=== PATIENT | female | born 1935 | race Asian ===

== ENCOUNTER 2020-10-13 11:01 | Inpatient (IN) | payer OTHER, BC, SELFPAY ==
[~2020-10-13] VITALS: Ht 157.5 cm; Wt 60.8 kg
[~2020-10-13 11:01] MED LIST: ACT35 PO; ASPI-1393 PO; ATOR10TA68 PO; CLOP75TA32 PO; COR25 PO; GLIP-204 PO; VALS1TAB40 PO; [UNRECOGNIZED DRUG - CODE] PO
[2020-10-13 11:18] VITALS: BP_SYST 147
[2020-10-13] MEDS ORDERED: LEVE500T9 PO (11:51)
[2020-10-13] MEDS ORDERED: GLIP5TAB26 PO (11:51)
[2020-10-13] MEDS ORDERED: MOM PO (11:51)
[2020-10-13] MEDS ORDERED: ALOG25TA PO (11:51)
[2020-10-13] MEDS ORDERED: ACET325C5 PO (11:51)
[2020-10-13] MEDS ORDERED: SSNOVOLOG SUBCUT (11:51)
[2020-10-13] MEDS ORDERED: XALEYE OP (11:51)
[2020-10-13] MEDS ORDERED: INSU100V9 SQ (11:51)
[2020-10-13] MEDS ORDERED: FLEETMO RC (11:51)
[2020-10-13] MEDS ORDERED: ASCO500T20 PO (11:51)
[2020-10-13] MEDS ORDERED: CRAN500T2 PO (11:51)
[2020-10-13] MEDS ORDERED: BISA10SU61 RC (11:51)
[2020-10-13] MEDS ORDERED: MULT-1117 PO (11:51)
[2020-10-13] MEDS ORDERED: MEGE400O4 PO (11:51)
[2020-10-13] MEDS ORDERED: IPRA4AER INH (11:51)
[2020-10-13 12:02] LABS: BASOPHILS # (AUTO) 0.1 K/uL (0.0-0.2); BASOPHILS % (AUTO) 0.5 % (0.0-2.0); HEMATOCRIT 38.2 % (36-48); HEMOGLOBIN 12.7 g/dL (12.0-16.0); LYMPHOCYTES # (AUTO) 0.5 K/uL (1.0-5.5); LYMPHOCYTES % (AUTO) 3.6 % (20.5-51.5); MEAN CORPUSCULAR HEMOGLOBIN 31 pg (27-31); MEAN CORPUSCULAR HGB CONC 33 % (32-36); MEAN CORPUSCULAR VOLUME 93 fL (79.0-98.0); MONOCYTES # (AUTO) 0.5 K/uL (0.0-1.0); MONOCYTES % (AUTO) 3.3 % (1.7-9.3); NEUTROPHILS % (AUTO) 92.6 % (40.0-70.0); PLATELET COUNT (AUTO) 446 K/uL (130-430); RED BLOOD CELL COUNT(AUTO) 4.12 MIL/uL (4.2-6.2); RED CELL DISTRIBUTION WIDTH 15.4 % (9.0-15.0); WHITE BLOOD COUNT (AUTO) 14.1 K/uL (4.8-10.8)
[2020-10-13 12:14] LABS: ANION GAP 18 (5-15); CALCIUM 9.4 mg/dL (8.4-11.0); CHLORIDE 102 mmol/L (98-107); CREATININE 2.77 mg/dL (0.55-1.30); GLUCOSE 157 mg/dL (70-99); POTASSIUM 5.7 mmol/L (3.5-5.1); SODIUM SERUM 134 mmol/L (136-145); UREA NITROGEN, BLOOD 52 mg/dL (8-21)
[2020-10-13] MEDS ORDERED: NACL 0.9% 1,000 ML IV ONE ×2 (12:15→13:45)
[2020-10-13 12:20] LABS: ALANINE AMINOTRANSFERASE 34 U/L (12-78); ALBUMIN 2.9 g/dL (3.4-4.8); ASPARTATE AMINOTRANSFERASE 21 U/L (10-37); LACTATE DEHYDROGENASE 199 U/L (81-234); TOTAL BILIRUBIN 0.7 mg/dL (0.0-1.0)
[2020-10-13 12:48] LABS: C-REACTIVE PROTEIN QUANT 18.4 mg/dL (0-0.5); PROTHROMBIN TIME 10.3 SECS (9.5-12.5)
[2020-10-13] MEDS: NACL 0.9% 1,000 ML IV SCH ×2 (13:00→21:50)
[2020-10-13] MEDS ORDERED: AZITHROMYCIN 500 MG/VIAL (ZITHROMAX) IV ONE (13:05)
[2020-10-13] MEDS ORDERED: SODIUM ZIRCONIUM CYCLOSILICATE 10 GM POWD.PACK PO ONE (13:45)
[2020-10-13] MEDS ORDERED: HEPARIN 25,000 UNITS/D5W 250ML 250 ML IV ONE (13:55)
[2020-10-13 13:56] LABS: BILIRUBIN,URINE NEGATIVE (NEGATIVE); BLOOD, URINE NEGATIVE (NEGATIVE); CLARITY/URINE CLEAR (CLEAR); COLOR,URINE YELLOW (YELLOW); GLUCOSE,URINE 1+ (NEGATIVE); KETONES,URINE NEGATIVE (NEGATIVE); LEUKOCYTE ESTERASE ,URINE NEGATIVE (NEGATIVE); NITRITE, URINE NEGATIVE (NEGATIVE); PH,URINE 5.5 (5.0-8.0); PROTEIN URINE NEGATIVE (NEGATIVE); UROBILINOGEN,URINE 0.2 (0.2-1.0)
[2020-10-13] MEDS ORDERED: AZITHROMYCIN 500 MG in NS 250 ML IV ONE (14:00)
[2020-10-13] MEDS: HEPARIN 25,000 UNITS/D5W 250ML 250 ML IV PRN (14:40)
[2020-10-13] MEDS ORDERED: HEPARIN SODIUM,PORCINE 3000 UNITS/0.6 ML BOLUS IVP PRN (14:45)
[2020-10-13] MEDS ORDERED: HEPARIN SODIUM,PORCINE 5,000 UNITS/ML VIAL IVP ONE (14:45)
[2020-10-13] MEDS ORDERED: HEPARIN SODIUM,PORCINE 2000 UNITS/0.4 ML BOLUS IVP PRN (14:45)
[2020-10-13] MEDS ORDERED: TRANEXAMIC ACID 1,000 MG/10 ML VIAL ONE (17:24)
[2020-10-13] MEDS: INSULIN REGULAR, HUMAN 100 UNITS/ML, 10 ML VIAL (humuLIN R) SUBCUT PRN (18:16)
[2020-10-13] MEDS ORDERED: MINERAL OIL 133 ML ENEMA RC PRN (18:30)
[2020-10-13] MEDS ORDERED: ACETAMINOPHEN 325 MG TABLET PO PRN (18:30)
[2020-10-13] MEDS ORDERED: IPRATROPIUM/ALBUTEROL SULFATE 120 PUFFS/4 GM INH INH PRN (18:30)
[2020-10-13] MEDS ORDERED: MILK OF MAGNESIA 30 ML UDC PO PRN (18:30)
[2020-10-13 19:00] VITALS: BP_SYST 82
[2020-10-13] MEDS: PIPERACILLIN/TAZO 2.25G/DEX-IS 50 ML IV SCH (19:00)
[2020-10-13 20:00] VITALS: BP_SYST 150
[2020-10-13 21:00] VITALS: BP_SYST 109
[2020-10-13] MEDS: INSULIN GLARGINE 100 UNITS/ML 10 ML VIAL SQ SCH (21:00)
[2020-10-13] MEDS: LATANOPROST 2.5 ML DROPS (XALATAN) OP SCH (21:00)
[2020-10-13] MEDS ORDERED: PIPERACILLIN/TAZOBACTAM 2.25 GM VIAL IV ONE (21:11)
[2020-10-13] MEDS: levETIRAcetam 500 MG TABLET PO SCH (21:36)
[2020-10-13] MEDS ORDERED: ACETAMINOPHEN 325 MG TABLET ONE (21:56)
[2020-10-13 22:00] VITALS: BP_SYST 177
[2020-10-13 23:00] VITALS: BP_SYST 135
[2020-10-13 23:11] LABS: INR 1.2 (0.8-1.2); PROTHROMBIN TIME 12.1 SECS (9.5-12.5)
[2020-10-14] VITALS (23 sets, daily range): BP systolic 100–161
[2020-10-14] MEDS: PIPERACILLIN/TAZO 2.25G/DEX-IS 50 ML IV SCH ×5 (01:14→23:15)
[2020-10-14] MEDS ORDERED: glipiZIDE XL 5 MG TAB ( GLUCOTROL XL) PO SCH (07:00)
[2020-10-14] MEDS ORDERED: IPRATROPIUM/ALBUTEROL SULFATE 3 ML AMPUL.NEB (DUONEB) INH PRN (07:15)
[2020-10-14 08:59] LABS: BASOPHILS % (AUTO) 0.2 % (0.0-2.0); HEMATOCRIT 30.8 % (36-48); HEMOGLOBIN 9.9 g/dL (12.0-16.0); LYMPHOCYTES # (AUTO) 0.3 K/uL (1.0-5.5); LYMPHOCYTES % (AUTO) 2.5 % (20.5-51.5); MEAN CORPUSCULAR HEMOGLOBIN 31 pg (27-31); MEAN CORPUSCULAR HGB CONC 32 % (32-36); MEAN CORPUSCULAR VOLUME 95 fL (79.0-98.0); MONOCYTES # (AUTO) 0.4 K/uL (0.0-1.0); MONOCYTES % (AUTO) 2.8 % (1.7-9.3); NEUTROPHILS % (AUTO) 94.5 % (40.0-70.0); PLATELET COUNT (AUTO) 308 K/uL (130-430); RED BLOOD CELL COUNT(AUTO) 3.23 MIL/uL (4.2-6.2); RED CELL DISTRIBUTION WIDTH 16.2 % (9.0-15.0); WHITE BLOOD COUNT (AUTO) 13.7 K/uL (4.8-10.8)
[2020-10-14] MEDS: CLOPIDOGREL BISULFATE 75 MG TABLET PO SCH (09:00)
[2020-10-14] MEDS: ASCORBIC ACID 500 MG TABLET PO SCH (09:00)
[2020-10-14] MEDS: BISACODYL 10 MG/SUPPOSITORY RC SCH (09:00)
[2020-10-14] MEDS: levETIRAcetam 500 MG TABLET PO SCH ×2 (09:00→21:00)
[2020-10-14] MEDS ORDERED: cefTRIAXone 1 GM IVPB PREMIX 50 ML IV SCH (09:00)
[2020-10-14] MEDS: MEGESTROL ACETATE 400 MG/10 ML UDC PO SCH (09:00)
[2020-10-14] MEDS: ASPIRIN 81 MG TABLET(ECOTRIN) PO SCH (09:00)
[2020-10-14] MEDS ORDERED: CRANBERRY EXTRACT 500 MG PO SCH (09:00)
[2020-10-14] MEDS: MULTIVITAMINS TAB 1 TABLET PO SCH (09:00)
[2020-10-14] MEDS: DEXAMETHASONE SOD PHOSPHATE 4 MG/ML VIAL IVP SCH (10:00)
[2020-10-14 10:04] LABS: ANION GAP 15 (5-15); CALCIUM 8.7 mg/dL (8.4-11.0); CHLORIDE 112 mmol/L (98-107); CREATININE 2.17 mg/dL (0.55-1.30); GLUCOSE 143 mg/dL (70-99); POTASSIUM 5.1 mmol/L (3.5-5.1); SODIUM SERUM 142 mmol/L (136-145); UREA NITROGEN, BLOOD 50 mg/dL (8-21)
[2020-10-14 10:18] LABS: ALANINE AMINOTRANSFERASE 28 U/L (12-78); ALBUMIN 2.2 g/dL (3.4-4.8); ASPARTATE AMINOTRANSFERASE 37 U/L (10-37); THYROID STIMULATING HORMONE 1.02 uIu/mL (0.36-3.74); TOTAL BILIRUBIN 0.6 mg/dL (0.0-1.0)
[2020-10-14 11:26] LABS: CHOLESTEROL 115 mg/dL (<200); HDL CHOLESTEROL 33 mg/dL (>55); LDL CHOLESTEROL 32 mg/dL (<100); TRIGLYCERIDES 94 mg/dL (30-150)
[2020-10-14] MEDS: INSULIN REGULAR, HUMAN 100 UNITS/ML, 10 ML VIAL (humuLIN R) SUBCUT PRN ×3 (12:59→23:17)
[2020-10-14] MEDS: NACL 0.9% 1,000 ML IV SCH (13:04)
[2020-10-14] MEDS ORDERED: SODIUM BICARBONATE 8.4% JECT 50 MEQ/50 ML SYRINGE IVP ONE ×2 (16:15→19:45)
[2020-10-14] MEDS ORDERED: SODIUM BICARBONATE 8.4% JECT 50 MEQ/50 ML SYRINGE ONE ×3 (16:16→18:47)
[2020-10-14] MEDS ORDERED: FUROSEMIDE 100 MG in D5W 90 ML IV SCH (17:00)
[2020-10-14] MEDS: LATANOPROST 2.5 ML DROPS (XALATAN) OP SCH (21:00)
[2020-10-14] MEDS ORDERED: PROPOFOL DRIP 100 ML IV ONE (22:51)
[2020-10-14] MEDS: INSULIN GLARGINE 100 UNITS/ML 10 ML VIAL SQ SCH (23:00)
[2020-10-14] MEDS: PROPOFOL DRIP 100 ML IV PRN (23:18)
[2020-10-15] VITALS (28 sets, daily range): BP systolic 95–148
[2020-10-15] MEDS: PIPERACILLIN/TAZO 2.25G/DEX-IS 50 ML IV SCH ×3 (05:08→17:11)
[2020-10-15 05:28] LABS: BASOPHILS % (AUTO) 0.4 % (0.0-2.0); EOSINOPHILS # (AUTO) 0.2 K/uL (0.0-0.4); EOSINOPHILS % (AUTO) 1.4 % (0.0-4.0); HEMATOCRIT 24.6 % (36-48); HEMOGLOBIN 8.3 g/dL (12.0-16.0); LYMPHOCYTES # (AUTO) 0.2 K/uL (1.0-5.5); LYMPHOCYTES % (AUTO) 1.7 % (20.5-51.5); MEAN CORPUSCULAR HEMOGLOBIN 32 pg (27-31); MEAN CORPUSCULAR HGB CONC 34 % (32-36); MEAN CORPUSCULAR VOLUME 94 fL (79.0-98.0); MONOCYTES # (AUTO) 0.4 K/uL (0.0-1.0); MONOCYTES % (AUTO) 3.5 % (1.7-9.3); NEUTROPHILS # (AUTO) 11.9 K/uL (1.8-7.7); PLATELET COUNT (AUTO) 267 K/uL (130-430); RED BLOOD CELL COUNT(AUTO) 2.62 MIL/uL (4.2-6.2); RED CELL DISTRIBUTION WIDTH 16.3 % (9.0-15.0); WHITE BLOOD COUNT (AUTO) 12.7 K/uL (4.8-10.8)
[2020-10-15 05:40] LABS: ANION GAP 11 (5-15); CALCIUM 7.8 mg/dL (8.4-11.0); CHLORIDE 115 mmol/L (98-107); CREATININE 2.36 mg/dL (0.55-1.30); GLUCOSE 174 mg/dL (70-99); PHOSPHORUS 3.5 mg/dL (2.7-4.5); SODIUM SERUM 149 mmol/L (136-145); UREA NITROGEN, BLOOD 56 mg/dL (8-21)
[2020-10-15] MEDS: INSULIN REGULAR, HUMAN 100 UNITS/ML, 10 ML VIAL (humuLIN R) SUBCUT PRN ×4 (05:57→20:55)
[2020-10-15] MEDS: HEPARIN 25,000 UNITS/D5W 250ML 250 ML IV PRN (06:02)
[2020-10-15] MEDS: ASPIRIN 81 MG TABLET(ECOTRIN) PO SCH (08:31)
[2020-10-15] MEDS: DEXAMETHASONE SOD PHOSPHATE 4 MG/ML VIAL IVP SCH (08:31)
[2020-10-15] MEDS: levETIRAcetam 500 MG TABLET PO SCH ×2 (08:32→20:56)
[2020-10-15] MEDS: BISACODYL 10 MG/SUPPOSITORY RC SCH (08:32)
[2020-10-15] MEDS: MEGESTROL ACETATE 400 MG/10 ML UDC PO SCH (08:32)
[2020-10-15] MEDS: ASCORBIC ACID 500 MG TABLET PO SCH (08:32)
[2020-10-15] MEDS: MULTIVITAMINS TAB 1 TABLET PO SCH (08:32)
[2020-10-15] MEDS: CLOPIDOGREL BISULFATE 75 MG TABLET PO SCH (08:32)
[2020-10-15] MEDS: NACL 0.9% 1,000 ML IV SCH ×2 (09:30→17:11)
[2020-10-15] MEDS ORDERED: ETOMIDATE 20 MG/ 10 ML VIAL (AMIDATE) IVP ONE (11:01)
[2020-10-15] MEDS ORDERED: SUCCINYLCHOLINE CHLORIDE 20 MG/ML(QUELICIN) IVP ONE (11:01)
[2020-10-15] MEDS: LATANOPROST 2.5 ML DROPS (XALATAN) OP SCH (20:57)
[2020-10-15] MEDS: MUPIROCIN 1 GM OIN.PF.APP NS SCH (20:57)
[2020-10-15] MEDS: LINEZOLID 300 ML IV SCH (20:58)
[2020-10-15] MEDS: INSULIN GLARGINE 100 UNITS/ML 10 ML VIAL SQ SCH (20:59)
[2020-10-16] VITALS (30 sets, daily range): BP systolic 98–153
[2020-10-16] MEDS: PIPERACILLIN/TAZO 2.25G/DEX-IS 50 ML IV SCH ×5 (01:47→23:58)
[2020-10-16] MEDS: NACL 0.9% 1,000 ML IV SCH ×3 (01:48→23:57)
[2020-10-16] MEDS: PROPOFOL DRIP 100 ML IV PRN ×2 (01:51→17:04)
[2020-10-16] MEDS: INSULIN REGULAR, HUMAN 100 UNITS/ML, 10 ML VIAL (humuLIN R) SUBCUT PRN ×4 (06:18→21:05)
[2020-10-16 06:19] LABS: BASOPHILS % (AUTO) 0.1 % (0.0-2.0); HEMATOCRIT 22.5 % (36-48); HEMOGLOBIN 7.5 g/dL (12.0-16.0); LYMPHOCYTES # (AUTO) 0.4 K/uL (1.0-5.5); LYMPHOCYTES % (AUTO) 3.8 % (20.5-51.5); MEAN CORPUSCULAR HEMOGLOBIN 31 pg (27-31); MEAN CORPUSCULAR HGB CONC 33 % (32-36); MEAN CORPUSCULAR VOLUME 92 fL (79.0-98.0); MONOCYTES # (AUTO) 0.6 K/uL (0.0-1.0); MONOCYTES % (AUTO) 4.8 % (1.7-9.3); NEUTROPHILS # (AUTO) 10.5 K/uL (1.8-7.7); NEUTROPHILS % (AUTO) 91.3 % (40.0-70.0); PLATELET COUNT (AUTO) 197 K/uL (130-430); RED BLOOD CELL COUNT(AUTO) 2.46 MIL/uL (4.2-6.2); RED CELL DISTRIBUTION WIDTH 15.8 % (9.0-15.0); WHITE BLOOD COUNT (AUTO) 11.6 K/uL (4.8-10.8)
[2020-10-16 06:37] LABS: ANION GAP 16 (5-15); CALCIUM 7.5 mg/dL (8.4-11.0); CHLORIDE 113 mmol/L (98-107); GLUCOSE 226 mg/dL (70-99); PHOSPHORUS 3.6 mg/dL (2.7-4.5); POTASSIUM 3.4 mmol/L (3.5-5.1); SODIUM SERUM 148 mmol/L (136-145); UREA NITROGEN, BLOOD 56 mg/dL (8-21)
[2020-10-16] MEDS ORDERED: POTASSIUM CHLORIDE 40 MEQ in NS 250 ML IV ONE (08:15)
[2020-10-16] MEDS: CLOPIDOGREL BISULFATE 75 MG TABLET PO SCH (08:37)
[2020-10-16] MEDS: ASCORBIC ACID 500 MG TABLET PO SCH (08:37)
[2020-10-16] MEDS: MEGESTROL ACETATE 400 MG/10 ML UDC PO SCH (08:37)
[2020-10-16] MEDS: levETIRAcetam 500 MG TABLET PO SCH ×2 (08:37→21:02)
[2020-10-16] MEDS: MULTIVITAMINS TAB 1 TABLET PO SCH (08:37)
[2020-10-16] MEDS: ASPIRIN 81 MG TABLET(ECOTRIN) PO SCH (08:37)
[2020-10-16] MEDS: LINEZOLID 300 ML IV SCH ×2 (08:37→21:01)
[2020-10-16] MEDS: MUPIROCIN 1 GM OIN.PF.APP NS SCH ×2 (08:41→21:02)
[2020-10-16] MEDS: BISACODYL 10 MG/SUPPOSITORY RC SCH (08:41)
[2020-10-16] MEDS: LATANOPROST 2.5 ML DROPS (XALATAN) OP SCH (21:02)
[2020-10-16] MEDS: INSULIN GLARGINE 100 UNITS/ML 10 ML VIAL SQ SCH (21:04)
[2020-10-16] MEDS ORDERED: HEPARIN SODIUM,PORCINE 5,000 UNITS/ML VIAL ONE (21:07)
[2020-10-16] MEDS: HEPARIN SODIUM,PORCINE 5,000 UNITS/ML VIAL SUBCUT SCH (21:08)
[2020-10-17] VITALS (28 sets, daily range): BP systolic 92–147
[2020-10-17] MEDS: PIPERACILLIN/TAZO 2.25G/DEX-IS 50 ML IV SCH (05:39)
[2020-10-17] MEDS: INSULIN REGULAR, HUMAN 100 UNITS/ML, 10 ML VIAL (humuLIN R) SUBCUT PRN ×3 (05:41→17:34)
[2020-10-17 06:35] LABS: HEMATOCRIT 23.7 % (36-48); HEMOGLOBIN 7.9 g/dL (12.0-16.0); MEAN CORPUSCULAR HEMOGLOBIN 31 pg (27-31); MEAN CORPUSCULAR HGB CONC 33 % (32-36); MEAN CORPUSCULAR VOLUME 93 fL (79.0-98.0); PLATELET COUNT (AUTO) 197 K/uL (130-430); RED BLOOD CELL COUNT(AUTO) 2.54 MIL/uL (4.2-6.2); RED CELL DISTRIBUTION WIDTH 16.2 % (9.0-15.0); WHITE BLOOD COUNT (AUTO) 11.7 K/uL (4.8-10.8)
[2020-10-17 06:48] LABS: ALANINE AMINOTRANSFERASE 28 U/L (12-78); ALBUMIN 1.5 g/dL (3.4-4.8); ANION GAP 14 (5-15); ASPARTATE AMINOTRANSFERASE 24 U/L (10-37); CALCIUM 7.6 mg/dL (8.4-11.0); CHLORIDE 114 mmol/L (98-107); CREATININE 2.08 mg/dL (0.55-1.30); GLUCOSE 222 mg/dL (70-99); PHOSPHORUS 2.3 mg/dL (2.7-4.5); POTASSIUM 3.5 mmol/L (3.5-5.1); SODIUM SERUM 148 mmol/L (136-145); TOTAL BILIRUBIN 0.4 mg/dL (0.0-1.0); UREA NITROGEN, BLOOD 50 mg/dL (8-21)
[2020-10-17] MEDS: BISACODYL 10 MG/SUPPOSITORY RC SCH (09:00)
[2020-10-17] MEDS: LINEZOLID 300 ML IV SCH ×2 (09:19→20:48)
[2020-10-17] MEDS: ASCORBIC ACID 500 MG TABLET PO SCH (09:20)
[2020-10-17] MEDS: levETIRAcetam 500 MG TABLET PO SCH ×2 (09:20→20:49)
[2020-10-17] MEDS: MUPIROCIN 1 GM OIN.PF.APP NS SCH ×2 (09:20→20:49)
[2020-10-17] MEDS: ASPIRIN 81 MG TABLET(ECOTRIN) PO SCH (09:20)
[2020-10-17] MEDS: MULTIVITAMINS TAB 1 TABLET PO SCH (09:20)
[2020-10-17] MEDS: MEGESTROL ACETATE 400 MG/10 ML UDC PO SCH (09:21)
[2020-10-17] MEDS: CLOPIDOGREL BISULFATE 75 MG TABLET PO SCH (09:21)
[2020-10-17] MEDS ORDERED: HEPARIN SODIUM,PORCINE 5,000 UNITS/ML VIAL ONE ×2 (10:26→20:56)
[2020-10-17] MEDS: HEPARIN SODIUM,PORCINE 5,000 UNITS/ML VIAL SUBCUT SCH ×2 (10:30→20:56)
[2020-10-17] MEDS: NACL 0.9% 1,000 ML IV SCH (13:00)
[2020-10-17] MEDS: CEFEPIME 1 GM in D5W 50 ML IV SCH (13:36)
[2020-10-17 13:46] LABS: BAND % (MANUAL) 15 % (0-6); BASOPHILS % (MANUAL) 0 % (0-2); EOSINOPHILS % (MANUAL) 0 % (0-7); LYMPHOCYTES % (MANUAL) 8 % (20-46); METAMYELOCYTES % 1 % (0-0); MONOCYTES % (MANUAL) 5 % (0-11)
[2020-10-17 13:47] LABS: WBC MORPHOLOGY TOXIC GRANULATION
[2020-10-17] MEDS: FLUCONAZOLE 100 mg/ NS 50 ML IV SCH (14:15)
[2020-10-17] MEDS: LATANOPROST 2.5 ML DROPS (XALATAN) OP SCH (20:49)
[2020-10-17] MEDS: INSULIN GLARGINE 100 UNITS/ML 10 ML VIAL SQ SCH (20:50)
[2020-10-17] MEDS: PROPOFOL DRIP 100 ML IV PRN (20:59)
[2020-10-18] VITALS (26 sets, daily range): BP systolic 91–156
[2020-10-18] MEDS: NACL 0.9% 1,000 ML IV SCH ×2 (02:23→15:47)
[2020-10-18 06:46] LABS: BASOPHILS % (AUTO) 0.2 % (0.0-2.0); EOSINOPHILS # (AUTO) 0.5 K/uL (0.0-0.4); EOSINOPHILS % (AUTO) 2.6 % (0.0-4.0); HEMATOCRIT 23.1 % (36-48); HEMOGLOBIN 7.7 g/dL (12.0-16.0); LYMPHOCYTES # (AUTO) 0.6 K/uL (1.0-5.5); LYMPHOCYTES % (AUTO) 3.4 % (20.5-51.5); MEAN CORPUSCULAR HEMOGLOBIN 31 pg (27-31); MEAN CORPUSCULAR HGB CONC 33 % (32-36); MEAN CORPUSCULAR VOLUME 93 fL (79.0-98.0); MONOCYTES # (AUTO) 0.5 K/uL (0.0-1.0); MONOCYTES % (AUTO) 2.7 % (1.7-9.3); NEUTROPHILS # (AUTO) 16.9 K/uL (1.8-7.7); NEUTROPHILS % (AUTO) 91.1 % (40.0-70.0); PLATELET COUNT (AUTO) 180 K/uL (130-430); RED BLOOD CELL COUNT(AUTO) 2.49 MIL/uL (4.2-6.2); RED CELL DISTRIBUTION WIDTH 16.1 % (9.0-15.0); WHITE BLOOD COUNT (AUTO) 18.5 K/uL (4.8-10.8)
[2020-10-18 07:28] LABS: ALANINE AMINOTRANSFERASE 15 U/L (12-78); ALBUMIN 1.3 g/dL (3.4-4.8); ANION GAP 14 (5-15); ASPARTATE AMINOTRANSFERASE 24 U/L (10-37); CALCIUM 7.8 mg/dL (8.4-11.0); CHLORIDE 116 mmol/L (98-107); GLUCOSE 114 mg/dL (70-99); PHOSPHORUS 2.5 mg/dL (2.7-4.5); POTASSIUM 3.3 mmol/L (3.5-5.1); SODIUM SERUM 147 mmol/L (136-145); TOTAL BILIRUBIN 0.3 mg/dL (0.0-1.0); UREA NITROGEN, BLOOD 40 mg/dL (8-21)
[2020-10-18] MEDS: MEGESTROL ACETATE 400 MG/10 ML UDC PO SCH (09:00)
[2020-10-18] MEDS: MULTIVITAMINS TAB 1 TABLET PO SCH (09:00)
[2020-10-18] MEDS: MUPIROCIN 1 GM OIN.PF.APP NS SCH ×2 (09:00→21:10)
[2020-10-18] MEDS: LINEZOLID 300 ML IV SCH ×2 (09:00→21:08)
[2020-10-18] MEDS: ASCORBIC ACID 500 MG TABLET PO SCH (09:00)
[2020-10-18] MEDS: HEPARIN SODIUM,PORCINE 5,000 UNITS/ML VIAL SUBCUT SCH ×2 (09:00→21:13)
[2020-10-18] MEDS: BISACODYL 10 MG/SUPPOSITORY RC SCH (09:00)
[2020-10-18] MEDS: ASPIRIN 81 MG TABLET(ECOTRIN) PO SCH (09:00)
[2020-10-18] MEDS: levETIRAcetam 500 MG TABLET PO SCH ×2 (09:00→21:10)
[2020-10-18] MEDS: CLOPIDOGREL BISULFATE 75 MG TABLET PO SCH (09:00)
[2020-10-18] MEDS: CEFEPIME 1 GM in D5W 50 ML IV SCH (13:15)
[2020-10-18] MEDS: FLUCONAZOLE 100 mg/ NS 50 ML IV SCH (14:00)
[2020-10-18 17:49] LABS: ANION GAP 12 (5-15); CALCIUM 7.4 mg/dL (8.4-11.0); CHLORIDE 115 mmol/L (98-107); CREATININE 1.69 mg/dL (0.55-1.30); GLUCOSE 73 mg/dL (70-99); SODIUM SERUM 146 mmol/L (136-145); UREA NITROGEN, BLOOD 37 mg/dL (8-21)
[2020-10-18 18:03] LABS: POTASSIUM 2.8 mmol/L (3.5-5.1)
[2020-10-18] MEDS ORDERED: KCL 40 mEq in 100 mL (PREMIX) 100 ML IV ONE (20:00)
[2020-10-18] MEDS ORDERED: HEPARIN SODIUM,PORCINE 5,000 UNITS/ML VIAL ONE (20:53)
[2020-10-18] MEDS: INSULIN GLARGINE 100 UNITS/ML 10 ML VIAL SQ SCH (21:00)
[2020-10-18] MEDS: LATANOPROST 2.5 ML DROPS (XALATAN) OP SCH (21:10)
[2020-10-19] VITALS (30 sets, daily range): BP systolic 93–156
[2020-10-19] MEDS: NACL 0.9% 1,000 ML IV SCH ×3 (06:12→23:49)
[2020-10-19] MEDS ORDERED: ACETAMINOPHEN 325 MG TABLET ONE (06:15)
[2020-10-19 06:37] LABS: BASOPHILS % (AUTO) 0.2 % (0.0-2.0); EOSINOPHILS # (AUTO) 0.1 K/uL (0.0-0.4); EOSINOPHILS % (AUTO) 0.3 % (0.0-4.0); LYMPHOCYTES # (AUTO) 0.5 K/uL (1.0-5.5); LYMPHOCYTES % (AUTO) 2.5 % (20.5-51.5); MEAN CORPUSCULAR HEMOGLOBIN 31 pg (27-31); MEAN CORPUSCULAR HGB CONC 33 % (32-36); MEAN CORPUSCULAR VOLUME 93 fL (79.0-98.0); MONOCYTES # (AUTO) 0.5 K/uL (0.0-1.0); MONOCYTES % (AUTO) 2.1 % (1.7-9.3); NEUTROPHILS # (AUTO) 20.5 K/uL (1.8-7.7); NEUTROPHILS % (AUTO) 94.9 % (40.0-70.0); PLATELET COUNT (AUTO) 151 K/uL (130-430); RED BLOOD CELL COUNT(AUTO) 2.23 MIL/uL (4.2-6.2); WHITE BLOOD COUNT (AUTO) 21.6 K/uL (4.8-10.8)
[2020-10-19 07:16] LABS: ANION GAP 11 (5-15); CALCIUM 7.7 mg/dL (8.4-11.0); CHLORIDE 114 mmol/L (98-107); CREATININE 1.75 mg/dL (0.55-1.30); GLUCOSE 266 mg/dL (70-99); POTASSIUM 3.7 mmol/L (3.5-5.1); SODIUM SERUM 144 mmol/L (136-145); UREA NITROGEN, BLOOD 40 mg/dL (8-21)
[2020-10-19 07:20] LABS: PHOSPHORUS 2.2 mg/dL (2.7-4.5)
[2020-10-19 08:36] LABS: HEMATOCRIT 20.8 % (36-48); HEMOGLOBIN 6.8 g/dL (12.0-16.0)
[2020-10-19] MEDS: MUPIROCIN 1 GM OIN.PF.APP NS SCH ×2 (09:00→21:00)
[2020-10-19] MEDS: levETIRAcetam 500 MG TABLET PO SCH ×2 (09:00→21:00)
[2020-10-19] MEDS: ASCORBIC ACID 500 MG TABLET PO SCH (09:00)
[2020-10-19] MEDS: MEGESTROL ACETATE 400 MG/10 ML UDC PO SCH (09:00)
[2020-10-19] MEDS: BISACODYL 10 MG/SUPPOSITORY RC SCH (09:00)
[2020-10-19] MEDS: LINEZOLID 300 ML IV SCH ×2 (09:00→21:00)
[2020-10-19] MEDS: ASPIRIN 81 MG TABLET(ECOTRIN) PO SCH (09:00)
[2020-10-19] MEDS: HEPARIN SODIUM,PORCINE 5,000 UNITS/ML VIAL SUBCUT SCH (09:00)
[2020-10-19] MEDS: CLOPIDOGREL BISULFATE 75 MG TABLET PO SCH (09:00)
[2020-10-19] MEDS: MULTIVITAMINS TAB 1 TABLET PO SCH (09:00)
[2020-10-19 09:53] LABS: BASOPHILS % (AUTO) 0.2 % (0.0-2.0); EOSINOPHILS # (AUTO) 0.1 K/uL (0.0-0.4); EOSINOPHILS % (AUTO) 0.3 % (0.0-4.0); LYMPHOCYTES # (AUTO) 0.5 K/uL (1.0-5.5); LYMPHOCYTES % (AUTO) 2.7 % (20.5-51.5); MEAN CORPUSCULAR HEMOGLOBIN 31 pg (27-31); MEAN CORPUSCULAR HGB CONC 33 % (32-36); MEAN CORPUSCULAR VOLUME 94 fL (79.0-98.0); MONOCYTES # (AUTO) 0.6 K/uL (0.0-1.0); MONOCYTES % (AUTO) 2.9 % (1.7-9.3); NEUTROPHILS # (AUTO) 17.8 K/uL (1.8-7.7); NEUTROPHILS % (AUTO) 93.9 % (40.0-70.0); PLATELET COUNT (AUTO) 141 K/uL (130-430); RED BLOOD CELL COUNT(AUTO) 2.17 MIL/uL (4.2-6.2); RED CELL DISTRIBUTION WIDTH 16.4 % (9.0-15.0); WHITE BLOOD COUNT (AUTO) 18.9 K/uL (4.8-10.8)
[2020-10-19 10:11] LABS: HEMATOCRIT 20.4 % (36-48); HEMOGLOBIN 6.7 g/dL (12.0-16.0)
[2020-10-19 10:29] LABS: ANION GAP 13 (5-15); CALCIUM 7.8 mg/dL (8.4-11.0); CHLORIDE 114 mmol/L (98-107); CREATININE 1.73 mg/dL (0.55-1.30); GLUCOSE 263 mg/dL (70-99); POTASSIUM 3.5 mmol/L (3.5-5.1); SODIUM SERUM 144 mmol/L (136-145); UREA NITROGEN, BLOOD 39 mg/dL (8-21)
[2020-10-19] MEDS: INSULIN REGULAR, HUMAN 100 UNITS/ML, 10 ML VIAL (humuLIN R) SUBCUT PRN ×2 (12:00→23:48)
[2020-10-19] MEDS ORDERED: HEPARIN SODIUM,PORCINE 5,000 UNITS/ML VIAL ONE (12:05)
[2020-10-19] MEDS: CEFEPIME 1 GM in D5W 50 ML IV SCH (14:10)
[2020-10-19] MEDS: FLUCONAZOLE 100 mg/ NS 50 ML IV SCH (14:11)
[2020-10-19] MEDS ORDERED: PANTOPRAZOLE SODIUM 40 MG/VIAL (PROTONIX) IVP ONE (14:45)
[2020-10-19] MEDS: INSULIN GLARGINE 100 UNITS/ML 10 ML VIAL SQ SCH (21:00)
[2020-10-19] MEDS ORDERED: PANTOPRAZOLE SODIUM 40 MG/VIAL (PROTONIX) IVP SCH (21:00)
[2020-10-19] MEDS: LATANOPROST 2.5 ML DROPS (XALATAN) OP SCH (21:00)
[2020-10-20] VITALS (30 sets, daily range): BP systolic 93–151
[2020-10-20] MEDS: PROPOFOL DRIP 100 ML IV PRN (04:46)
[2020-10-20] MEDS: INSULIN REGULAR, HUMAN 100 UNITS/ML, 10 ML VIAL (humuLIN R) SUBCUT PRN ×4 (06:35→22:46)
[2020-10-20] MEDS: BISACODYL 10 MG/SUPPOSITORY RC SCH (09:00)
[2020-10-20] MEDS: MUPIROCIN 1 GM OIN.PF.APP NS SCH (09:35)
[2020-10-20] MEDS: ASPIRIN 81 MG TABLET(ECOTRIN) PO SCH (09:35)
[2020-10-20] MEDS: PANTOPRAZOLE SODIUM 40 MG/VIAL (PROTONIX) IVP SCH (09:35)
[2020-10-20] MEDS: levETIRAcetam 500 MG TABLET PO SCH ×2 (09:35→20:13)
[2020-10-20] MEDS: LINEZOLID 300 ML IV SCH ×2 (09:35→20:12)
[2020-10-20] MEDS: ASCORBIC ACID 500 MG TABLET PO SCH (09:36)
[2020-10-20] MEDS: MEGESTROL ACETATE 400 MG/10 ML UDC PO SCH (09:36)
[2020-10-20] MEDS: CLOPIDOGREL BISULFATE 75 MG TABLET PO SCH (09:36)
[2020-10-20] MEDS: MULTIVITAMINS TAB 1 TABLET PO SCH (09:36)
[2020-10-20] MEDS: CEFEPIME 1 GM in D5W 50 ML IV SCH (13:00)
[2020-10-20] MEDS: FLUCONAZOLE 100 mg/ NS 50 ML IV SCH (14:00)
[2020-10-20] MEDS: NACL 0.9% 1,000 ML IV SCH (20:12)
[2020-10-20] MEDS: LATANOPROST 2.5 ML DROPS (XALATAN) OP SCH (20:13)
[2020-10-20] MEDS: INSULIN GLARGINE 100 UNITS/ML 10 ML VIAL SQ SCH (21:00)
[2020-10-21] VITALS (28 sets, daily range): BP systolic 96–172
[2020-10-21] MEDS: INSULIN REGULAR, HUMAN 100 UNITS/ML, 10 ML VIAL (humuLIN R) SUBCUT PRN ×3 (06:43→17:47)
[2020-10-21 06:55] LABS: BASOPHILS # (AUTO) 0.1 K/uL (0.0-0.2); BASOPHILS % (AUTO) 0.4 % (0.0-2.0); EOSINOPHILS # (AUTO) 0.4 K/uL (0.0-0.4); HEMATOCRIT 32.7 % (36-48); HEMOGLOBIN 10.6 g/dL (12.0-16.0); LYMPHOCYTES # (AUTO) 0.7 K/uL (1.0-5.5); LYMPHOCYTES % (AUTO) 3.7 % (20.5-51.5); MEAN CORPUSCULAR HEMOGLOBIN 30 pg (27-31); MEAN CORPUSCULAR HGB CONC 33 % (32-36); MEAN CORPUSCULAR VOLUME 91 fL (79.0-98.0); MONOCYTES # (AUTO) 0.5 K/uL (0.0-1.0); MONOCYTES % (AUTO) 2.7 % (1.7-9.3); NEUTROPHILS # (AUTO) 17.2 K/uL (1.8-7.7); NEUTROPHILS % (AUTO) 91.2 % (40.0-70.0); PLATELET COUNT (AUTO) 119 K/uL (130-430); RED BLOOD CELL COUNT(AUTO) 3.61 MIL/uL (4.2-6.2); RED CELL DISTRIBUTION WIDTH 16.3 % (9.0-15.0); WHITE BLOOD COUNT (AUTO) 18.8 K/uL (4.8-10.8)
[2020-10-21 07:21] LABS: ALANINE AMINOTRANSFERASE 9 U/L (12-78); ALBUMIN 0.9 g/dL (3.4-4.8); ANION GAP 11 (5-15); ASPARTATE AMINOTRANSFERASE 20 U/L (10-37); CALCIUM 7.8 mg/dL (8.4-11.0); CHLORIDE 113 mmol/L (98-107); CREATININE 1.55 mg/dL (0.55-1.30); GLUCOSE 193 mg/dL (70-99); POTASSIUM 3.3 mmol/L (3.5-5.1); SODIUM SERUM 142 mmol/L (136-145); TOTAL BILIRUBIN 0.5 mg/dL (0.0-1.0); UREA NITROGEN, BLOOD 36 mg/dL (8-21)
[2020-10-21] MEDS: BISACODYL 10 MG/SUPPOSITORY RC SCH (09:00)
[2020-10-21] MEDS ORDERED: HEPARIN SODIUM,PORCINE 5,000 UNITS/ML VIAL SUBCUT SCH (09:15)
[2020-10-21] MEDS: CLOPIDOGREL BISULFATE 75 MG TABLET PO SCH (09:46)
[2020-10-21] MEDS: ASCORBIC ACID 500 MG TABLET PO SCH (09:46)
[2020-10-21] MEDS: MULTIVITAMINS TAB 1 TABLET PO SCH (09:47)
[2020-10-21] MEDS: MEGESTROL ACETATE 400 MG/10 ML UDC PO SCH (09:47)
[2020-10-21] MEDS: levETIRAcetam 500 MG TABLET PO SCH ×2 (09:47→21:37)
[2020-10-21] MEDS: PANTOPRAZOLE SODIUM 40 MG/VIAL (PROTONIX) IVP SCH (09:49)
[2020-10-21] MEDS: ASPIRIN 81 MG TABLET(ECOTRIN) PO SCH (09:49)
[2020-10-21] MEDS: LINEZOLID 300 ML IV SCH (09:53)
[2020-10-21] MEDS: NACL 0.9% 1,000 ML IV SCH ×2 (10:20→21:38)
[2020-10-21] MEDS ORDERED: HEPARIN SODIUM,PORCINE 5,000 UNITS/ML VIAL SUBCUT ONE (11:15)
[2020-10-21] MEDS: FLUCONAZOLE 100 mg/ NS 50 ML IV SCH (13:13)
[2020-10-21] MEDS: CEFEPIME 1 GM in D5W 50 ML IV SCH (13:13)
[2020-10-21] MEDS: VANCOMYCIN HCL 1,000 MG in NS 250 ML IV SCH (17:46)
[2020-10-21] MEDS: INSULIN GLARGINE 100 UNITS/ML 10 ML VIAL SQ SCH (21:00)
[2020-10-21] MEDS: HEPARIN SODIUM,PORCINE 5,000 UNITS/ML VIAL SUBCUT SCH (21:37)
[2020-10-21] MEDS: LATANOPROST 2.5 ML DROPS (XALATAN) OP SCH (21:37)
[2020-10-22] VITALS (29 sets, daily range): BP systolic 86–146
[2020-10-22] MEDS: ASCORBIC ACID 500 MG TABLET PO SCH (08:49)
[2020-10-22] MEDS: MEGESTROL ACETATE 400 MG/10 ML UDC PO SCH (08:50)
[2020-10-22] MEDS: ASPIRIN 81 MG TABLET(ECOTRIN) PO SCH (08:50)
[2020-10-22] MEDS: MULTIVITAMINS TAB 1 TABLET PO SCH (08:51)
[2020-10-22] MEDS: PANTOPRAZOLE SODIUM 40 MG/VIAL (PROTONIX) IVP SCH (08:53)
[2020-10-22] MEDS: levETIRAcetam 500 MG TABLET PO SCH ×2 (08:54→21:20)
[2020-10-22] MEDS: CLOPIDOGREL BISULFATE 75 MG TABLET PO SCH (08:55)
[2020-10-22] MEDS: BISACODYL 10 MG/SUPPOSITORY RC SCH (08:58)
[2020-10-22] MEDS: HEPARIN SODIUM,PORCINE 5,000 UNITS/ML VIAL SUBCUT SCH ×2 (10:57→21:27)
[2020-10-22] MEDS: CEFEPIME 1 GM in D5W 50 ML IV SCH (12:43)
[2020-10-22] MEDS: INSULIN REGULAR, HUMAN 100 UNITS/ML, 10 ML VIAL (humuLIN R) SUBCUT PRN ×3 (12:53→21:28)
[2020-10-22] MEDS: NACL 0.9% 1,000 ML IV SCH (13:44)
[2020-10-22] MEDS: FLUCONAZOLE 100 mg/ NS 50 ML IV SCH (14:00)
[2020-10-22] MEDS: LATANOPROST 2.5 ML DROPS (XALATAN) OP SCH (21:20)
[2020-10-22] MEDS: INSULIN GLARGINE 100 UNITS/ML 10 ML VIAL SQ SCH (21:28)
[2020-10-23] VITALS (30 sets, daily range): BP systolic 11–117
[2020-10-23 04:55] LABS: BASOPHILS # (AUTO) 0.1 K/uL (0.0-0.2); BASOPHILS % (AUTO) 0.5 % (0.0-2.0); EOSINOPHILS # (AUTO) 0.1 K/uL (0.0-0.4); EOSINOPHILS % (AUTO) 0.9 % (0.0-4.0); HEMATOCRIT 31.9 % (36-48); HEMOGLOBIN 10.5 g/dL (12.0-16.0); LYMPHOCYTES # (AUTO) 0.3 K/uL (1.0-5.5); LYMPHOCYTES % (AUTO) 3.1 % (20.5-51.5); MEAN CORPUSCULAR HEMOGLOBIN 30 pg (27-31); MEAN CORPUSCULAR HGB CONC 33 % (32-36); MEAN CORPUSCULAR VOLUME 90 fL (79.0-98.0); MONOCYTES # (AUTO) 0.4 K/uL (0.0-1.0); MONOCYTES % (AUTO) 3.8 % (1.7-9.3); NEUTROPHILS # (AUTO) 9.3 K/uL (1.8-7.7); NEUTROPHILS % (AUTO) 91.7 % (40.0-70.0); PLATELET COUNT (AUTO) 79 K/uL (130-430); RED BLOOD CELL COUNT(AUTO) 3.53 MIL/uL (4.2-6.2); RED CELL DISTRIBUTION WIDTH 16.4 % (9.0-15.0); WHITE BLOOD COUNT (AUTO) 10.2 K/uL (4.8-10.8)
[2020-10-23 04:56] LABS: ANION GAP 10 (5-15); CHLORIDE 114 mmol/L (98-107); CREATININE 1.62 mg/dL (0.55-1.30); GLUCOSE 303 mg/dL (70-99); POTASSIUM 3.4 mmol/L (3.5-5.1); SODIUM SERUM 140 mmol/L (136-145); UREA NITROGEN, BLOOD 45 mg/dL (8-21)
[2020-10-23] MEDS: NACL 0.9% 1,000 ML IV SCH ×2 (06:03→16:46)
[2020-10-23] MEDS: INSULIN REGULAR, HUMAN 100 UNITS/ML, 10 ML VIAL (humuLIN R) SUBCUT PRN ×4 (06:03→21:43)
[2020-10-23] MEDS: PROPOFOL DRIP 100 ML IV PRN (06:06)
[2020-10-23] MEDS: BISACODYL 10 MG/SUPPOSITORY RC SCH (09:00)
[2020-10-23] MEDS: CLOPIDOGREL BISULFATE 75 MG TABLET PO SCH ×2 (09:00→09:20)
[2020-10-23] MEDS: MEGESTROL ACETATE 400 MG/10 ML UDC PO SCH (09:00)
[2020-10-23] MEDS: HEPARIN SODIUM,PORCINE 5,000 UNITS/ML VIAL SUBCUT SCH ×2 (09:00→21:45)
[2020-10-23] MEDS: PANTOPRAZOLE SODIUM 40 MG/VIAL (PROTONIX) IVP SCH (09:03)
[2020-10-23] MEDS: levETIRAcetam 500 MG TABLET PO SCH ×2 (09:03→21:10)
[2020-10-23] MEDS: ASCORBIC ACID 500 MG TABLET PO SCH (09:03)
[2020-10-23] MEDS: ASPIRIN 81 MG TABLET(ECOTRIN) PO SCH (09:03)
[2020-10-23] MEDS: MULTIVITAMINS TAB 1 TABLET PO SCH (09:08)
[2020-10-23] MEDS: CEFEPIME 1 GM in D5W 50 ML IV SCH (12:42)
[2020-10-23] MEDS: FLUCONAZOLE 100 mg/ NS 50 ML IV SCH (14:44)
[2020-10-23] MEDS: DEXMEDETOMIDINE HCL 200 MCG in NS 48 ML IV PRN (15:19)
[2020-10-23] MEDS: VANCOMYCIN HCL 1,000 MG in NS 250 ML IV SCH (16:46)
[2020-10-23] MEDS: LATANOPROST 2.5 ML DROPS (XALATAN) OP SCH (21:09)
[2020-10-23] MEDS: INSULIN GLARGINE 100 UNITS/ML 10 ML VIAL SQ SCH (21:45)
[2020-10-24] VITALS (28 sets, daily range): BP systolic 62–136
[2020-10-24] MEDS: DEXMEDETOMIDINE HCL 200 MCG in NS 48 ML IV PRN ×2 (01:52→22:00)
[2020-10-24] MEDS: NACL 0.9% 1,000 ML IV SCH ×2 (07:12→21:00)
[2020-10-24] MEDS ORDERED: NOREPINEPHRINE 4 MG/4 ML VIAL IV ONE (07:38)
[2020-10-24] MEDS ORDERED: NS 500 ML IV ONE (08:00)
[2020-10-24] MEDS: NOREPINEPHRINE BITARTRATE 4 MG in D5W 246 ML IV PRN ×3 (08:17→22:00)
[2020-10-24] MEDS: BISACODYL 10 MG/SUPPOSITORY RC SCH (08:20)
[2020-10-24] MEDS: MEGESTROL ACETATE 400 MG/10 ML UDC PO SCH (08:54)
[2020-10-24] MEDS: PANTOPRAZOLE SODIUM 40 MG/VIAL (PROTONIX) IVP SCH (09:09)
[2020-10-24] MEDS: CLOPIDOGREL BISULFATE 75 MG TABLET PO SCH (09:10)
[2020-10-24] MEDS: MULTIVITAMINS TAB 1 TABLET PO SCH (09:10)
[2020-10-24] MEDS: ASPIRIN 81 MG TABLET(ECOTRIN) PO SCH (09:10)
[2020-10-24] MEDS: levETIRAcetam 500 MG TABLET PO SCH ×2 (10:30→21:43)
[2020-10-24] MEDS: ASCORBIC ACID 500 MG TABLET PO SCH (10:30)
[2020-10-24] MEDS: CEFEPIME 1 GM in D5W 50 ML IV SCH (13:35)
[2020-10-24] MEDS: FLUCONAZOLE 100 mg/ NS 50 ML IV SCH (14:00)
[2020-10-24] MEDS: INSULIN GLARGINE 100 UNITS/ML 10 ML VIAL SQ SCH (21:57)
[2020-10-24] MEDS: HEPARIN SODIUM,PORCINE 5,000 UNITS/ML VIAL SUBCUT SCH (21:57)
[2020-10-24] MEDS: INSULIN REGULAR, HUMAN 100 UNITS/ML, 10 ML VIAL (humuLIN R) SUBCUT PRN (21:58)
[2020-10-24] MEDS: LATANOPROST 2.5 ML DROPS (XALATAN) OP SCH (21:58)
[2020-10-25] VITALS (29 sets, daily range): BP systolic 73–149
[2020-10-25 05:10] LABS: LYMPHOCYTES # (AUTO) 0.8 K/uL (1.0-5.5); MEAN CORPUSCULAR VOLUME 92 fL (79.0-98.0)
[2020-10-25 05:19] LABS: ALANINE AMINOTRANSFERASE 22 U/L (12-78); ALBUMIN 0.8 g/dL (3.4-4.8); ANION GAP 14 (5-15); ASPARTATE AMINOTRANSFERASE 35 U/L (10-37); CALCIUM 8.4 mg/dL (8.4-11.0); CHLORIDE 112 mmol/L (98-107); CREATININE 2.82 mg/dL (0.55-1.30); GLUCOSE 275 mg/dL (70-99); SODIUM SERUM 139 mmol/L (136-145); TOTAL BILIRUBIN 0.4 mg/dL (0.0-1.0); UREA NITROGEN, BLOOD 68 mg/dL (8-21)
[2020-10-25] MEDS: NOREPINEPHRINE BITARTRATE 4 MG in D5W 246 ML IV PRN (05:29)
[2020-10-25 05:57] LABS: BASOPHILS # (AUTO) 0.3 K/uL (0.0-0.2); BASOPHILS % (AUTO) 1.2 % (0.0-2.0); EOSINOPHILS # (AUTO) 1.6 K/uL (0.0-0.4); EOSINOPHILS % (AUTO) 7.6 % (0.0-4.0); HEMATOCRIT 30.9 % (36-48); HEMOGLOBIN 10.6 g/dL (12.0-16.0); LYMPHOCYTES % (AUTO) 3.9 % (20.5-51.5); MEAN CORPUSCULAR HEMOGLOBIN 32 pg (27-31); MEAN CORPUSCULAR HGB CONC 34 % (32-36); MONOCYTES # (AUTO) 0.9 K/uL (0.0-1.0); MONOCYTES % (AUTO) 4.3 % (1.7-9.3); NEUTROPHILS # (AUTO) 17.7 K/uL (1.8-7.7); PLATELET COUNT (AUTO) 239 K/uL (130-430); RED BLOOD CELL COUNT(AUTO) 3.37 MIL/uL (4.2-6.2); RED CELL DISTRIBUTION WIDTH 17.1 % (9.0-15.0); WHITE BLOOD COUNT (AUTO) 21.4 K/uL (4.8-10.8)
[2020-10-25] MEDS: INSULIN REGULAR, HUMAN 100 UNITS/ML, 10 ML VIAL (humuLIN R) SUBCUT PRN ×3 (06:13→18:54)
[2020-10-25] MEDS: NACL 0.9% 1,000 ML IV SCH ×2 (06:13→19:30)
[2020-10-25] MEDS: BISACODYL 10 MG/SUPPOSITORY RC SCH (09:00)
[2020-10-25] MEDS: MEGESTROL ACETATE 400 MG/10 ML UDC PO SCH (09:00)
[2020-10-25] MEDS: metroNIDAZOLE 500 mg/NS 100 ML IV SCH ×2 (09:15→22:26)
[2020-10-25] MEDS: PANTOPRAZOLE SODIUM 40 MG/VIAL (PROTONIX) IVP SCH (09:33)
[2020-10-25] MEDS: ASPIRIN 81 MG TABLET(ECOTRIN) PO SCH (09:33)
[2020-10-25] MEDS: levETIRAcetam 500 MG TABLET PO SCH ×2 (09:33→21:00)
[2020-10-25] MEDS: MULTIVITAMINS TAB 1 TABLET PO SCH (09:34)
[2020-10-25] MEDS: ASCORBIC ACID 500 MG TABLET PO SCH (09:35)
[2020-10-25] MEDS: CLOPIDOGREL BISULFATE 75 MG TABLET PO SCH (09:35)
[2020-10-25] MEDS: DEXMEDETOMIDINE HCL 200 MCG in NS 48 ML IV PRN ×2 (09:44→22:00)
[2020-10-25] MEDS: NOREPINEPHRINE BITARTRATE 16 MG in D5W 234 ML IV PRN (10:30)
[2020-10-25] MEDS: CEFEPIME 1 GM in D5W 50 ML IV SCH (13:37)
[2020-10-25] MEDS: FLUCONAZOLE 100 mg/ NS 50 ML IV SCH (13:45)
[2020-10-25] MEDS: ALBUMIN HUMAN 25% 100 ML IV SCH ×2 (19:30→23:30)
[2020-10-25] MEDS: INSULIN GLARGINE 100 UNITS/ML 10 ML VIAL SQ SCH (21:00)
[2020-10-25] MEDS: HEPARIN SODIUM,PORCINE 5,000 UNITS/ML VIAL SUBCUT SCH (21:00)
[2020-10-25] MEDS: SODIUM BICARBONATE 8.4% JECT 50 MEQ/50 ML SYRINGE IVP SCH ×3 (21:00→23:38)
[2020-10-25] MEDS: LATANOPROST 2.5 ML DROPS (XALATAN) OP SCH (21:00)
[2020-10-25] MEDS ORDERED: SODIUM BICARBONATE 8.4% JECT 50 MEQ/50 ML SYRINGE ONE ×2 (21:08→21:14)
[2020-10-25] MEDS ORDERED: FUROSEMIDE 40 MG/4 ML VIAL ONE (23:05)
[2020-10-25] MEDS ORDERED: ALBUMIN HUMAN 25% 100 ML IV ONE ×2 (23:05→23:07)
[2020-10-26] VITALS (18 sets, daily range): BP systolic 52–157
[2020-10-26] MEDS: SODIUM BICARBONATE 8.4% JECT 50 MEQ/50 ML SYRINGE IVP SCH ×2 (00:45→01:00)
[2020-10-26] MEDS ORDERED: ALBUMIN HUMAN 25% 100 ML IV ONE (02:06)
[2020-10-26] MEDS: ALBUMIN HUMAN 25% 100 ML IV SCH (03:30)
[2020-10-26] MEDS: NACL 0.9% 1,000 ML IV SCH ×3 (03:30→11:30)
[2020-10-26 05:20] LABS: RED BLOOD CELL COUNT(AUTO) 3.02 MIL/uL (4.2-6.2)
[2020-10-26 05:29] LABS: HEMATOCRIT 28.2 % (36-48); MEAN CORPUSCULAR HEMOGLOBIN 30 pg (27-31); MEAN CORPUSCULAR HGB CONC 32 % (32-36); MEAN CORPUSCULAR VOLUME 93 fL (79.0-98.0); PLATELET COUNT (AUTO) 148 K/uL (130-430); RED CELL DISTRIBUTION WIDTH 17.1 % (9.0-15.0); WHITE BLOOD COUNT (AUTO) 18.3 K/uL (4.8-10.8)
[2020-10-26 06:09] LABS: ANION GAP 15 (5-15); CALCIUM 8.4 mg/dL (8.4-11.0); CHLORIDE 112 mmol/L (98-107); CREATININE 3.45 mg/dL (0.55-1.30); POTASSIUM 3.7 mmol/L (3.5-5.1); SODIUM SERUM 142 mmol/L (136-145); UREA NITROGEN, BLOOD 79 mg/dL (8-21)
[2020-10-26 06:16] LABS: GLUCOSE 425 mg/dL (70-99)
[2020-10-26] MEDS: BISACODYL 10 MG/SUPPOSITORY RC SCH (09:00)
[2020-10-26] MEDS: ASPIRIN 81 MG TABLET(ECOTRIN) PO SCH (09:13)
[2020-10-26] MEDS: PANTOPRAZOLE SODIUM 40 MG/VIAL (PROTONIX) IVP SCH (09:13)
[2020-10-26] MEDS: ASCORBIC ACID 500 MG TABLET PO SCH (09:14)
[2020-10-26] MEDS: levETIRAcetam 500 MG TABLET PO SCH ×2 (09:14→21:09)
[2020-10-26] MEDS: CLOPIDOGREL BISULFATE 75 MG TABLET PO SCH (09:14)
[2020-10-26] MEDS: MULTIVITAMINS TAB 1 TABLET PO SCH (09:14)
[2020-10-26] MEDS: INSULIN REGULAR, HUMAN 100 UNITS/ML, 10 ML VIAL SUBCUT SCH ×3 (10:02→21:30)
[2020-10-26] MEDS: metroNIDAZOLE 500 mg/NS 100 ML IV SCH ×2 (11:30→21:07)
[2020-10-26] MEDS ORDERED: DOPamine PREMIX 250 ML IV ONE (12:24)
[2020-10-26] MEDS: INSULIN REGULAR, HUMAN 100 UNITS/ML, 10 ML VIAL (humuLIN R) SUBCUT PRN (12:46)
[2020-10-26] MEDS: CEFEPIME 1 GM in D5W 50 ML IV SCH (12:50)
[2020-10-26 13:09] LABS: LYMPHOCYTES % (MANUAL) 29 % (20-46); MONOCYTES % (MANUAL) 7 % (0-11)
[2020-10-26 13:10] LABS: BAND % (MANUAL) 27 % (0-6); BASOPHILS % (MANUAL) 0 % (0-2); EOSINOPHILS % (MANUAL) 0 % (0-7); METAMYELOCYTES % 2 % (0-0)
[2020-10-26] MEDS: FLUCONAZOLE 100 mg/ NS 50 ML IV SCH (14:58)
[2020-10-26] MEDS ORDERED: MORPHINE 4 MG/ML INJ. SYRINGE IVP PRN (16:00)
[2020-10-26] MEDS ORDERED: SODIUM BICARBONATE 8.4% JECT 50 MEQ/50 ML SYRINGE IVP ONE (19:45)
[2020-10-26] MEDS: LATANOPROST 2.5 ML DROPS (XALATAN) OP SCH (21:09)
[2020-10-26] MEDS: INSULIN GLARGINE 100 UNITS/ML 10 ML VIAL SQ SCH (21:31)
[2020-10-26] MEDS: HEPARIN SODIUM,PORCINE 5,000 UNITS/ML VIAL SUBCUT SCH (21:38)
[2020-10-27] MEDS: NACL 0.9% 1,000 ML IV SCH
[2020-10-27] MEDS ORDERED: NOREPINEPHRINE 4 MG/4 ML VIAL IV ONE (00:08)
[2020-10-27] MEDS: NOREPINEPHRINE BITARTRATE 16 MG in D5W 234 ML IV PRN ×2 (02:14→08:46)
[2020-10-27] MEDS: INSULIN REGULAR, HUMAN 100 UNITS/ML, 10 ML VIAL SUBCUT SCH ×2 (03:00→08:52)
[2020-10-27] MEDS: INSULIN REGULAR, HUMAN 100 UNITS/ML, 10 ML VIAL (humuLIN R) SUBCUT PRN (06:58)
[2020-10-27 07:34] LABS: BASOPHILS # (AUTO) 0.2 K/uL (0.0-0.2); BASOPHILS % (AUTO) 0.9 % (0.0-2.0); EOSINOPHILS # (AUTO) 0.5 K/uL (0.0-0.4); EOSINOPHILS % (AUTO) 1.9 % (0.0-4.0); HEMATOCRIT 30.3 % (36-48); HEMOGLOBIN 9.6 g/dL (12.0-16.0); LYMPHOCYTES # (AUTO) 0.9 K/uL (1.0-5.5); LYMPHOCYTES % (AUTO) 3.8 % (20.5-51.5); MEAN CORPUSCULAR HEMOGLOBIN 30 pg (27-31); MEAN CORPUSCULAR HGB CONC 32 % (32-36); MEAN CORPUSCULAR VOLUME 95 fL (79.0-98.0); MONOCYTES # (AUTO) 0.9 K/uL (0.0-1.0); MONOCYTES % (AUTO) 3.6 % (1.7-9.3); NEUTROPHILS # (AUTO) 22.5 K/uL (1.8-7.7); PLATELET COUNT (AUTO) 224 K/uL (130-430); RED CELL DISTRIBUTION WIDTH 17.5 % (9.0-15.0); WHITE BLOOD COUNT (AUTO) 25.1 K/uL (4.8-10.8)
[2020-10-27 07:57] LABS: ALANINE AMINOTRANSFERASE 26 U/L (12-78); ALBUMIN 2.1 g/dL (3.4-4.8); ANION GAP 17 (5-15); CHLORIDE 111 mmol/L (98-107); CREATININE 3.87 mg/dL (0.55-1.30); GLUCOSE 268 mg/dL (70-99); POTASSIUM 3.8 mmol/L (3.5-5.1); SODIUM SERUM 140 mmol/L (136-145); TOTAL BILIRUBIN 0.5 mg/dL (0.0-1.0); UREA NITROGEN, BLOOD 88 mg/dL (8-21)
[2020-10-27 08:46] LABS: NEUTROPHILS % (AUTO) 89.8 % (40.0-70.0)
[2020-10-27] MEDS: PANTOPRAZOLE SODIUM 40 MG/VIAL (PROTONIX) IVP SCH (08:49)
[2020-10-27] MEDS: metroNIDAZOLE 500 mg/NS 100 ML IV SCH (08:49)
[2020-10-27] MEDS: ASCORBIC ACID 500 MG TABLET PO SCH (08:50)
[2020-10-27] MEDS: CLOPIDOGREL BISULFATE 75 MG TABLET PO SCH (08:50)
[2020-10-27] MEDS: ASPIRIN 81 MG TABLET(ECOTRIN) PO SCH (08:50)
[2020-10-27] MEDS: levETIRAcetam 500 MG TABLET PO SCH (08:50)
[2020-10-27] MEDS: BISACODYL 10 MG/SUPPOSITORY RC SCH (08:50)
[2020-10-27] MEDS: MULTIVITAMINS TAB 1 TABLET PO SCH (08:50)
[2020-10-27 10:13] LABS: ASPARTATE AMINOTRANSFERASE 42 U/L (10-37)
== END 2020-10-27 21:01 | disposition expired | DRG 870 ==
LOC: SED 11:01 → STU 12:47 → SIC 19:26
PROVIDERS: ADMIT Family Medicine; ATTEND Family Medicine
PROC: 06HY33Z Insertion of Infusion Device into Lower Vein, Percutaneous Approach (ICD-10-PCS; 2020-10-13)
PROC: 5A1955Z Respiratory Ventilation, Greater than 96 Consecutive Hours (ICD-10-PCS; principal; 2020-10-14)
PROC: 02HV33Z Insertion of Infusion Device into Superior Vena Cava, Percutaneous Approach (ICD-10-PCS; 2020-10-14)
PROC: B548ZZA Ultrasonography of Superior Vena Cava, Guidance (ICD-10-PCS; 2020-10-14)
PROC: 30233N1 Transfusion of Nonautologous Red Blood Cells into Peripheral Vein, Percutaneous Approach (ICD-10-PCS; 2020-10-19)
DX: A41.9 Sepsis, unspecified organism (principal); R65.21 Severe sepsis with septic shock; N17.0 Acute kidney failure with tubular necrosis; J96.01 Acute respiratory failure with hypoxia; J15.9 Unspecified bacterial pneumonia; E43 Unspecified severe protein-calorie malnutrition; G93.41 Metabolic encephalopathy; I26.99 Other pulmonary embolism without acute cor pulmonale; E87.2 Acidosis; D68.69 Other thrombophilia; E87.1 Hypo-osmolality and hyponatremia; E11.22 Type 2 diabetes mellitus with diabetic chronic kidney disease; E87.70 Fluid overload, unspecified; F03.90 Unspecified dementia, unspecified severity, without behavioral disturbance, psychotic disturbance, mood disturbance, and anxiety; G40.909 Epilepsy, unspecified, not intractable, without status epilepticus; I12.9 Hypertensive chronic kidney disease with stage 1 through stage 4 chronic kidney disease, or unspecified chronic kidney disease; I25.10 Atherosclerotic heart disease of native coronary artery without angina pectoris; N18.9 Chronic kidney disease, unspecified; Z20.822 Contact with and (suspected) exposure to COVID-19; Z66 Do not resuscitate; E87.5 Hyperkalemia; D64.9 Anemia, unspecified; Z78.9 Other specified health status; Z79.4 Long term (current) use of insulin; Z87.01 Personal history of pneumonia (recurrent); Z86.73 Personal history of transient ischemic attack (TIA), and cerebral infarction without residual deficits
CPT/HCPCS: 31500; 36415; 36600; 71045; 76770; 78580-TC; 80048; 80053; 80061; 81003; 82550-TC; 82728; 82803-TC; 82962; 83605; 83615-TC; 83735-TC; 83880; 84100-TC; 84443-TC; 84484; 85007; 85025; 85027; 85379; 85384-TC; 85610-TC; 85730-TC; 86140; 86886; 86900; 86901; 86920; 87040-TC; 87070-TC; 87081; 87086; 87205-TC; 93005; 93306; 93970; 94002; 94003; 94640; 96361; 96365; 96375; A9540; C1751; C9113; J0330; J0456; J0692; J0696; J1100; J1265; J1450; J1644; J1815; J1940; J2020; J2270; J2543; J2704; J3370; J3480; J3490; J7030; J7050; J7060; P9021; P9046; U0003